=== PATIENT | female | born 1970 | race Caucasian/White ===

== ENCOUNTER 2017-06-19 17:10 | Emergency (ER) | payer OTHER ==
[2017-06-19 17:15] VITALS: BP 126/80; PULSE 72; RESP 18; TEMP 98.6; O2SAT 99
--- NOTE | 2017-06-19 17:17 | EDPHY ---
H & P Stated Complaint: wed had episode of bilat jaw/neck shoulder and back pain HPI/ROS: Chief complaint: Neck pain History of present illness: This is a 46-year-old female referred to the emergency department after speaking with her primary care office on the phone who requested she come here for evaluation. Patient states approximately 1 week ago while at work she had the onset of neck pain. The pain began at the base of the neck on both sides. It started to radiate up the neck into the back of the head. It then radiated around towards the face into the jaw. It made it very difficult to open and close her mouth. She left work and went home took ibuprofen. She states late into the evening she could not move her neck it was so stiff. The next morning she woke up feeling slightly better, she went to the dentist office and had to lay slightly inverted for an hour. She states after she got up from the dental chair her symptoms had essentially resolved. She states since then she has felt well. She has had complete resolution of symptoms. She does states she has had similar problems with "a pinched nerve in her low back ," but never in her neck. Since then, again approximately a week ago, she has been asymptomatic. She denies associated signs or symptoms including no fevers, no reported paresthesias, no weakness or paralysis, no bowel or bladder dysfunction, further no cough, no trouble breathing, no chest pain. No history of trauma. Review of systems: A 10 point review of systems was obtained and other than described above was negative - Personal History LMP (Females 10-55): 15-21 Days Ago Current Tetanus/Diphtheria Vaccine: Yes - Medical/Surgical History Hx Asthma: No Hx Chronic Respiratory Disease: No Hx Diabetes: No Hx Cardiac Disease: No Hx Renal Disease: No Hx Cirrhosis: No Hx Alcoholism: No Hx HIV/AIDS: No Hx Splenectomy or Spleen Trauma: No Other PMH: has had pinched nerve in neck previously - Social History Smoking Status: Never smoked - Physical Exam Exam: General Appearance: Alert, no distress. Eyes: Pupils equal and round no pallor or injection. ENT, Mouth: Mucous membranes moist. Respiratory: There are no retractions, lungs are clear to auscultation. Cardiovascular: Regular rate and rhythm. Radial pulses 2+ bilaterally. Gastrointestinal: Abdomen is soft and non tender, no masses, bowel sounds normal. Neurological: Alert and oriented x4. Cranial nerves 2-12 grossly intact. Strength and sensation intact and symmetrical. Patient ambulating without difficulty. Skin: Warm and dry, no rashes. Musculoskeletal: The head is nontender. Neck is supple non tender. The spine is nontender to palpation along its entire length. There is no tenderness to the rest of the back. Extremities are symmetrical, full range of motion. Psychiatric: Patient is oriented X 3, there is no agitation. Constitutional: Initial Vital Signs Temperature (C) 37 C 06/19/17 17:12 Heart Rate 72 06/19/17 17:12 Respiratory Rate 18 06/19/17 17:12 Blood Pressure 126/80 H 06/19/17 17:12 O2 Sat (%) 99 06/19/17 17:12 O2 Delivery Mode Room Air Allergies/Adverse Reactions: No Known Allergies Allergy (Unverified 06/19/17 17:12) Home Medications: Medication Instructions Recorded NK [No Known Home Meds] 06/19/17 Medical Decision Making ED Course/Re-evaluation: Patient discussed with my secondary supervising physician Dr. Khanh Galvan. Patient presents to the emergency department for neck pain that occurred 1 week ago. On my evaluation she has been asymptomatic for almost a week. She is nontoxic. She is afebrile and vital signs are stable. She has a benign physical exam. This does sound musculoskeletal in nature. Again she is asymptomatic at this time. I do not believe further evaluation is warranted in the emergency department. She is asked to follow up with her primary care doctor for continued evaluation and care. Return precautions are given. Patient voiced understanding and agreement with plan. Differential Diagnosis: Included but not limited to muscle spasms, herniated intervertebral disc, spinal stenosis, CVA, great vessel disease including aortic dissection Departure - Departure Disposition: Home, Routine, Self-Care Clinical Impression: Neck pain Condition: Good Instructions: Neck Pain (ED) Additional Instructions: Follow-up with your primary care doctor this week for a recheck. If symptoms return or new symptoms develop, return to the emergency room for recheck. Referrals: La Hoang MD [Primary Care Provider] - As per Instructions
== END 2017-06-19 17:42 | disposition home or self-care (01) ==
DX: M54.2 Cervicalgia (principal)